=== PATIENT | male | born 1965 | race American Indian/Alaskan Native ===

== ENCOUNTER 2017-03-29 15:22 | Emergency (ER) | payer MEDICAID ==
[2017-03-29 15:39] VITALS: BP 109/71
== END 2017-03-29 16:35 | disposition left against medical advice (07) ==
LOC: ED 15:22
DX: R69 Illness, unspecified (principal); Z53.21 Procedure and treatment not carried out due to patient leaving prior to being seen by health care provider

== ENCOUNTER 2017-03-30 16:35 | Emergency (ER) | payer MEDICAID ==
[2017-03-30 17:16] LABS: Mean Corpuscular HGB Conc 30 % (32-34); Mean Corpuscular Volume 74 fl (84-94); Platelet Count 273 K/mm3 (140-440); Red Blood Count 4.74 M/mm3 (3.65-5.03); White Blood Count 3.6 K/mm3 (4.5-11.0)
[2017-03-30 17:18] LABS: Hematocrit 34.9 % (35.5-45.6); Hemoglobin 10.6 gm/dl (11.8-15.2)
[2017-03-30 17:19] LABS: Mean Corpuscular Hemoglobin 22 pg (28-32)
--- NOTE | 2017-03-30 17:21 | XRay Report ---
FINAL REPORT EXAM: XR CHEST ROUTINE 2V HISTORY: Shortness of breath TECHNIQUE: Two view chest PA and lateral PRIORS: None. FINDINGS: Cardiac and mediastinal contours are unremarkable. No focal pulmonary infiltrate is identified. No pleural fluid collection seen. Pulmonary vasculature is unremarkable. IMPRESSION: Negative two-view chest
[2017-03-30 17:35] LABS: Anion Gap 20 mmol/L; BUN/Creatinine Ratio 11; Blood Urea Nitrogen 12 mg/dL (9-20); Calcium 8.3 mg/dL (8.4-10.2); Carbon Dioxide 24 mmol/L (22-30); Chloride 110.3 mmol/L (98-107); Glucose 98 mg/dL (75-100); Potassium 4.4 mmol/L (3.6-5.0); Sodium 150 mmol/L (137-145)
[2017-03-30 17:59] LABS: Anisocytosis 1+; Blastocytes % (Manual) 0 %; Eosinophils % (Manual) 0 % (0.0-4.3); Large Platelets 1+
[2017-03-30 18:00] LABS: Hypochromasia 1+; Ovalocytes 1+; Target Cells 1+; Tear Drop Cells Few
[2017-03-30 18:01] LABS: Diff Status Complete; Platelet Estimate Consistent w Auto
--- NOTE | 2017-03-31 00:02 | Emergency Department Report ---
ED Shortness of Breath HPI - General Chief Complaint: Dyspnea/Respdistress Stated Complaint: SORE THROAT/SOB Time Seen by Provider: 03/30/17 23:49 Source: patient Mode of arrival: Ambulatory Limitations: No Limitations - History of Present Illness Initial Comments: Patient is 51 years old male with history of high blood pressure presented to the ER with a main complaint of shortness of breath and cough, productive with greenish sputum. Patient stated that he had chills but no fever of days Ago but no fever. Patient denied any chest pain nausea or vomiting. MD Complaint: shortness of breath, cough -: days(s) Context: recent URI Associated Symptoms: cough, sputum production - Related Data Allergies Allergy/AdvReac Type Severity Reaction Status Date / Time No Known Allergies Allergy Verified 03/30/17 16:47 ED Review of Systems ROS: Stated complaint: SORE THROAT/SOB Other details as noted in HPI Comment: All other systems reviewed and negative Constitutional: denies: chills, fever Respiratory: cough, shortness of breath. denies: orthopnea, SOB with exertion, SOB at rest, stridor Cardiovascular: denies: chest pain, palpitations, dyspnea on exertion, orthopnea , edema Gastrointestinal: denies: abdominal pain, nausea, vomiting, diarrhea Genitourinary: denies: urgency Neurological: denies: headache, weakness, numbness, paresthesias ED Past Medical Hx - Past Medical History Hx Hypertension: Yes - Surgical History Additional Surgical History: Hx of hip and knee surgery - Social History Smoking Status: Current Every Day Smoker Substance Use Type: Alcohol ED Physical Exam - General Limitations: No Limitations General appearance: alert, in no apparent distress - Head Head exam: Present: atraumatic, normocephalic, normal inspection - Eye Eye exam: Present: normal appearance, PERRL, EOMI Pupils: Present: normal accommodation - ENT ENT exam: Present: normal exam, normal orophraynx, mucous membranes moist - Neck Neck exam: Present: normal inspection, full ROM. Absent: tenderness, meningismus, lymphadenopathy, thyromegaly - Respiratory Respiratory exam: Present: normal lung sounds bilaterally. Absent: respiratory distress, wheezes, rales, rhonchi, stridor, chest wall tenderness, accessory muscle use, decreased breath sounds, prolonged expiratory - Cardiovascular Cardiovascular Exam: Present: regular rate, normal rhythm, normal heart sounds - GI/Abdominal GI/Abdominal exam: Present: soft, normal bowel sounds. Absent: distended, tenderness, guarding, rebound, rigid, organomegaly, mass, bruit, pulsatile mass , hernia - Extremities Exam Extremities exam: Present: normal inspection, full ROM, normal capillary refill. Absent: pedal edema - Back Exam Back exam: Present: normal inspection. Absent: tenderness, CVA tenderness (R), CVA tenderness (L) - Neurological Exam Neurological exam: Present: alert, oriented X3, CN II-XII intact, normal gait - Skin Skin exam: Present: warm, intact, normal color ED Course Vital Signs 03/30/17 03/30/17 03/31/17 16:47 19:38 00:43 Temperature 98.1 F 98.2 F Pulse Rate 85 109 H Respiratory 16 18 20 Rate Blood Pressure 111/65 124/75 O2 Sat by Pulse 95 100 Oximetry - Reevaluation(s) Reevaluation #1: 03/31/17 01:25 Patient stated that he is feeling much better. He denied any chest pain. 2 sets of troponins negative. His chest x-ray unremarkable ED Medical Decision Making - Lab Data Result diagrams: 03/30/17 16:56 03/30/17 16:56 - EKG Data -: EKG Interpreted by Md EKG shows normal: sinus rhythm Rate: normal - EKG Data Interpretation: no acute changes - Radiology Data Radiology results: report reviewed Referring Physician: CLYDE ROTH Patient Name: NICK SUAZO Date of : 1965 Sex: Male Report Date: 2017-03-30 Report Status: Finalized Findings [address] [address] XRay Report Signed Patient: NICK SUAZO MR#: [id number] : 1965 Acct:[id number] Age/Sex: 51 / M ADM Date: 03/30/17 Loc: ED Attending Dr: Ordering Physician: CLYDE ROTH MD Date of Service: 03/30/17 Procedure(s): XR chest routine 2V Accession Number(s): [id number] cc: CLYDE ROTH MD Fluoro Time In Minutes: FINAL REPORT EXAM: XR CHEST ROUTINE 2V HISTORY: Shortness of breath TECHNIQUE: Two view chest PA and lateral PRIORS: None. FINDINGS: Cardiac and mediastinal contours are unremarkable. No focal pulmonary infiltrate is identified. No pleural fluid collection seen. Pulmonary vasculature is unremarkable. IMPRESSION: Negative two-view chest Transcribed By: LANE Dictated By: DIRK BOLDEN MD Electronically Authenticated By: DIRK BOLDEN MD Signed Date/Time: 03/30/171316 DD/ 16 TD/TT: 03/30/171316 Critical care attestation.: If time is entered above; I have spent that time in minutes in the direct care of this critically ill patient, excluding procedure time. ED Disposition Clinical Impression: Shortness of breath, Acute bronchitis Disposition: DC-01 TO HOME OR SELFCARE Is pt being admited?: No Condition: Stable Instructions: Acute Bronchitis (ED) Referrals: PRIMARY CAREMD [Primary Care Provider] - 3-5 Days
[2017-03-31 04:00] VITALS: BP 140/88
== END 2017-03-31 04:03 | disposition home or self-care (01) ==
LOC: ED 16:35
DX: J20.9 Acute bronchitis, unspecified (principal); R06.02 Shortness of breath; I10 Essential (primary) hypertension; F17.200 Nicotine dependence, unspecified, uncomplicated
CPT/HCPCS: 36415; 71020; 80048; 83880; 84484; 85007; 85025; 93005; 93010; 99284; G0480; 80320

== ENCOUNTER 2017-08-14 22:11 | Emergency (ER) | payer MEDICAID ==
[2017-08-14 22:31] VITALS: BP 131/92
--- NOTE | 2017-08-14 23:08 | XRay Report ---
FINAL REPORT PROCEDURE: XR HAND 2V LT TECHNIQUE: LEFT hand radiographs, AP and lateral views. CPT 06808-ZG HISTORY: left hand pain and swelling COMPARISON: No prior studies are available for comparison. FINDINGS: Bony alignment is within normal limits. There is evidence of periarticular erosions involving the 3rd and 5th metacarpophalangeal joints. Joint space narrowing is noted involving radiocarpal joint. Mild degree osteophyte formation is noted involving interphalangeal joints. An acute fracture is not identified. Soft tissues are normal. No radiopaque foreign bodies. IMPRESSION: Findings are suspicious for a combination of osteoarthritis and gout. Clinical correlation is recommended..
--- NOTE | 2017-08-15 02:50 | Emergency Department Report ---
ED Extremity Problem HPI - General Chief complaint: Extremity Injury, Lower Stated complaint: LT HAND PAIN Time Seen by Provider: 08/15/17 02:44 Source: patient Mode of arrival: Ambulatory Limitations: No Limitations - History of Present Illness Initial comments: 51-year-old -[place] male comes to the emergency room and pain of left hand pain. Patient reports that he broke his arm 3 weeks ago and took off his cast by himself. Patient reports that he made a quick move yesterday and feels that he may have reinjured his left hand. Patient has a past medical history of chronic pain and patient is taking Percocet 10 mg last prescription was given on 08/08/2017. Patient has a past medical history of hypertension. No known drug allergies. MD Complaint: extremity pain -: days(s) (1) Location: left History of Same: Yes -: Yes arthralgia Radiation: none Severity scale (0 -10): 8 Quality: burning Consistency: constant Improves with: nothing Worsens with: weight bearing - Related Data Previous Rx's Medication Instructions Recorded Last Taken Type Amoxicillin [Amoxicillin TAB] 875 mg PO BID #14 tablet 03/31/17 Unknown Rx guaiFENesin [Robitussin] 5 ml PO TID PRN #100 ml 03/31/17 Unknown Rx Ibuprofen [Motrin 800 MG tab] 800 mg PO Q8HR PRN #30 tablet 08/15/17 Unknown Rx Allergies Allergy/AdvReac Type Severity Reaction Status Date / Time No Known Allergies Allergy Verified 03/30/17 16:47 ED Review of Systems ROS: Stated complaint: LT HAND PAIN Other details as noted in HPI Constitutional: denies: chills, fever Eyes: denies: eye pain, eye discharge, vision change ENT: denies: ear pain, throat pain Respiratory: denies: cough, shortness of breath, wheezing Cardiovascular: denies: chest pain, palpitations Endocrine: no symptoms reported Gastrointestinal: denies: abdominal pain, nausea, diarrhea Genitourinary: denies: urgency, dysuria Musculoskeletal: arthralgia. denies: back pain, joint swelling Skin: denies: rash, lesions Neurological: denies: headache, weakness, paresthesias Psychiatric: denies: anxiety, depression Hematological/Lymphatic: denies: easy bleeding, easy bruising ED Past Medical Hx - Past Medical History Previous Medical History?: Yes Hx Hypertension: Yes - Surgical History Past Surgical History?: Yes Additional Surgical History: Hx of hip and knee surgery - Social History Smoking Status: Current Every Day Smoker Substance Use Type: Alcohol - Medications Home Medications: Home Medications Medication Instructions Recorded Confirmed Last Taken Type Amoxicillin [Amoxicillin TAB] 875 mg PO BID #14 tablet 03/31/17 Unknown Rx guaiFENesin [Robitussin] 5 ml PO TID PRN #100 ml 03/31/17 Unknown Rx Ibuprofen [Motrin 800 MG tab] 800 mg PO Q8HR PRN #30 tablet 08/15/17 Unknown Rx ED Physical Exam - General Limitations: No Limitations General appearance: alert, in no apparent distress - Head Head exam: Present: atraumatic, normocephalic - Eye Eye exam: Present: normal appearance - ENT ENT exam: Present: mucous membranes moist - Neck Neck exam: Present: normal inspection - Expanded Upper Extremity Exam Left General: Present: normal inspection Shoulder Exam: Present: normal inspection, full ROM. Absent: tenderness Upper Arm exam: Present: normal inspection, full ROM. Absent: tenderness Elbow exam: Present: normal inspection, full ROM. Absent: tenderness Forearm Wrist exam: Present: normal inspection, full ROM. Absent: tenderness Hand Wrist exam: Present: normal inspection, full ROM, tenderness, deformity ( swan neck phalanges). Absent: swelling Vascular: Present: normal capillary refill. Absent: vascular compromise ED Course Vital Signs 08/14/17 22:26 Temperature 98.6 F Pulse Rate 85 Respiratory 20 Rate Blood Pressure 131/92 O2 Sat by Pulse 99 Oximetry ED Medical Decision Making - Radiology Data Radiology results: report reviewed, image reviewed FINDINGS: Bony alignment is within normal limits. There is evidence of periarticular erosions involving the 3rd and 5th metacarpophalangeal joints. Joint space narrowing is noted involving radiocarpal joint. Mild degree osteophyte formation is noted involving interphalangeal joints. An acute fracture is not identified. Soft tissues are normal. No radiopaque foreign bodies. IMPRESSION: Findings are suspicious for a combination of osteoarthritis and gout. Clinical correlation is recommended.. Transcribed By: [facility] Dictated By: MICHAEL PETTY Electronically Authenticated By: MICHAEL PETTY Signed Date/Time: 08/14/172302 DD/ 02 TD/TT: 04/25/18 2303 - Medical Decision Making Patient's been evaluated by this provider fast track. X-ray of hand shows no acute fractures. Shows some chronic arthritis versus gout. Patient recently received a prescription and filled it on for 08/08/2017 for Percocet 10 mg. Will give patient a prescription for ibuprofen. Patient should follow-up with his primary care provider. Critical care attestation.: If time is entered above; I have spent that time in minutes in the direct care of this critically ill patient, excluding procedure time. ED Disposition Clinical Impression: Left hand pain Disposition: DC-01 TO HOME OR SELFCARE Is pt being admited?: No Does the pt Need Aspirin: No Condition: Stable Instructions: Arthralgia (ED) Additional Instructions: Please continue with her chronic pain medicine. He can try taking ibuprofen to see if it helps. Follow up with her primary care provider if symptoms persist or gets worse. Prescriptions: Ibuprofen [Motrin 800 MG tab] 800 mg PO Q8HR PRN #30 tablet PRN Reason: Pain Referrals: PRIMARY CARE, [Primary Care Provider] - 3-5 Days
== END 2017-08-15 02:55 | disposition home or self-care (01) ==
LOC: ED 22:11
DX: M79.642 Pain in left hand (principal); I10 Essential (primary) hypertension; F17.200 Nicotine dependence, unspecified, uncomplicated
CPT/HCPCS: 99283

== ENCOUNTER 2017-09-22 16:02 | Emergency (ER) | payer MEDICAID ==
[2017-09-22 16:12] VITALS: BP 83/44
== END 2017-09-22 16:37 | disposition left against medical advice (07) ==
LOC: ED 16:02
DX: R53.1 Weakness (principal); Z53.21 Procedure and treatment not carried out due to patient leaving prior to being seen by health care provider
CPT/HCPCS: 93005; 93010

== ENCOUNTER 2017-10-21 21:32 | Emergency (ER) | payer MEDICAID ==
[2017-10-21 21:55] VITALS: BP 109/69
== END 2017-10-21 23:10 | disposition left against medical advice (07) ==
LOC: ED 21:32
DX: M25.512 Pain in left shoulder (principal); Z53.21 Procedure and treatment not carried out due to patient leaving prior to being seen by health care provider

== ENCOUNTER 2018-11-13 20:04 | Emergency (ER) | payer MEDICAID ==
[2018-11-13 20:13] VITALS: BP 135/93
--- NOTE | 2018-11-13 20:18 | Emergency Department Report ---
- General Chief complaint: Skin/Abscess/Foreign Body Stated complaint: BIT ON BACK Source: patient Mode of arrival: Ambulatory Limitations: No Limitations - History of Present Illness Initial comments: 52 y/o male comes in for a bite on his upper back. He sustain this yesterday. Complains of mild pain no discharge does not itch. UTD on vaccine. complaint: insect bite/sting Onset/Timin -: days(s) Tetanus Up to Date: yes Location: back ( upper) Severity: mild Quality: burning Consistency: intermittent Context: other (possible insect bite. ) Associated symptoms: denies other symptoms Treatments Prior to Arrival: none - Related Data Previous Rx's Medication Instructions Recorded Last Taken Type Amoxicillin [Amoxicillin TAB] 875 mg PO BID #14 tablet 03/31/17 Unknown Rx guaiFENesin [Robitussin] 5 ml PO TID PRN #100 ml 03/31/17 Unknown Rx Ibuprofen [Motrin 800 MG tab] 800 mg PO Q8HR PRN #30 tablet 08/15/17 Unknown Rx Hydrocortisone/Aloe/Vit.e/A/D 28 gm TP TID #28 cream..g. 11/13/18 Unknown Rx [Anti-Itch Creme 1% Cream] Allergies Allergy/AdvReac Type Severity Reaction Status Date / Time No Known Allergies Allergy Verified 10/21/17 21:52 Abscess Boil HPI - HPI Chief Complaint: Skin/Abscess/Foreign Body Stated Complaint: BIT ON BACK Home Medications: Previous Rx's Medication Instructions Recorded Last Taken Type Amoxicillin [Amoxicillin TAB] 875 mg PO BID #14 tablet 03/31/17 Unknown Rx guaiFENesin [Robitussin] 5 ml PO TID PRN #100 ml 03/31/17 Unknown Rx Ibuprofen [Motrin 800 MG tab] 800 mg PO Q8HR PRN #30 tablet 08/15/17 Unknown Rx Hydrocortisone/Aloe/Vit.e/A/D 28 gm TP TID #28 cream..g. 11/13/18 Unknown Rx [Anti-Itch Creme 1% Cream] Allergies/Adverse Reactions: Allergies Allergy/AdvReac Type Severity Reaction Status Date / Time No Known Allergies Allergy Verified 10/21/17 21:52 ED Review of Systems ROS: Stated complaint: BIT ON BACK Other details as noted in HPI Comment: All other systems reviewed and negative ED Past Medical Hx - Past Medical History Hx Hypertension: Yes - Surgical History Additional Surgical History: Hx of hip and knee surgery - Social History Smoking Status: Current Every Day Smoker Substance Use Type: Alcohol - Medications Home Medications: Home Medications Medication Instructions Recorded Confirmed Last Taken Type Amoxicillin [Amoxicillin TAB] 875 mg PO BID #14 tablet 03/31/17 Unknown Rx guaiFENesin [Robitussin] 5 ml PO TID PRN #100 ml 03/31/17 Unknown Rx Ibuprofen [Motrin 800 MG tab] 800 mg PO Q8HR PRN #30 tablet 08/15/17 Unknown Rx Hydrocortisone/Aloe/Vit.e/A/D 28 gm TP TID #28 cream..g. 11/13/18 Unknown Rx [Anti-Itch Creme 1% Cream] ED Physical Exam - General Limitations: No Limitations General appearance: alert, in no apparent distress - Head Head exam: Present: atraumatic, normocephalic - Eye Eye exam: Present: normal appearance - ENT ENT exam: Present: mucous membranes moist - Neurological Exam Neurological exam: Present: alert, oriented X3, normal gait - Psychiatric Psychiatric exam: Present: normal affect, normal mood - Expanded Skin Exam Expanded Type of lesion: Present: bite/sting Distribution of rash: back (upper) Description of rash: Present: erythematous, swelling ED Medical Decision Making - Medical Decision Making 52 y/o male comes in for what appears to be an insect bite. Patient will be discharge with instruction to keep clean and can you over the counter after bite. Critical care attestation.: If time is entered above; I have spent that time in minutes in the direct care of this critically ill patient, excluding procedure time. ED Disposition Clinical Impression: Insect bite Qualifiers: Encounter type: initial encounter Site of insect bite: unspecified part of neck Qualified Code(s): S10.96XA - Insect bite of unspecified part of neck, initial encounter; W57.XXXA - Bitten or stung by nonvenomous insect and other nonvenomous arthropods, initial encounter Disposition: - TO HOME OR SELFCARE Is pt being admited?: No Does the pt Need Aspirin: No Condition: Stable Instructions: Insect Bite or Sting (ED) Additional Instructions: Follow up with you primary care provider. Prescriptions: Hydrocortisone/Aloe/Vit.e/A/D [Anti-Itch Creme 1% Cream] 28 gm TP TID #28 cream..g.
== END 2018-11-13 20:50 | disposition home or self-care (01) ==
LOC: ED 20:04
DX: S10.96XA Insect bite of unspecified part of neck, initial encounter (principal); I10 Essential (primary) hypertension; F17.200 Nicotine dependence, unspecified, uncomplicated; W57.XXXA Bitten or stung by nonvenomous insect and other nonvenomous arthropods, initial encounter; Y93.89 Activity, other specified; Y92.89 Other specified places as the place of occurrence of the external cause; Y99.8 Other external cause status
CPT/HCPCS: 99282

== ENCOUNTER 2018-12-16 01:25 | Emergency (ER) | payer MEDICAID ==
--- NOTE | 2018-12-16 02:38 | XRay Report ---
LEFT WRIST 4 VIEWS. INDICATION / CLINICAL INFORMATION: swelling and pain COMPARISON: None available. FINDINGS: BONES / JOINT(S): No acute fracture or subluxation. Well-corticated bony fragment seen adjacent to th e ulnar styloid process. Mild DJD at the radiocarpal joint. SOFT TISSUES: No significant abnormality. ADDITIONAL FINDINGS: None. Signer Name: Nghia Grissom MD Signed: 12/16/2018 2:34 AM Workstation Name: [id number]
[2018-12-16] MEDS ORDERED: DELTASONE PO ONE (04:45)
[2018-12-16] MEDS ORDERED: ULTRAM PO ONE (04:45)
--- NOTE | 2018-12-16 04:51 | Emergency Department Report ---
ED Upper Extremity Inj HPI - General Chief Complaint: Extremity Injury, Upper Stated Complaint: LT WRIST AND ARM PAIN W/SWELLING Source: patient Mode of arrival: Ambulatory Limitations: No Limitations - History of Present Illness Initial Comments: Physical examination -[place] male who presents with left wrist pain 2 days states over 10 pain swelling denies history of arthritis or gout there is minimal pharyngeal trauma there is no numbness or tingling no deformity there is mild swelling no bleeding or abrasion or laceration there is no numbness or tingling bands and understanding MD Complaint: Injury to:: left Onset/Timin -: days(s) Other Extremity Injury: Hand: Left, Wrist: Left Other Injuries: none Handedness: right Place: home Severity scale (0 -10): 5 Improves With: none, movement Worsens With: none Associated Symptoms: denies other symptoms - Related Data Previous Rx's Medication Instructions Recorded Last Taken Type Amoxicillin [Amoxicillin TAB] 875 mg PO BID #14 tablet 03/31/17 Unknown Rx guaiFENesin [Robitussin] 5 ml PO TID PRN #100 ml 03/31/17 Unknown Rx Ibuprofen [Motrin 800 MG tab] 800 mg PO Q8HR PRN #30 tablet 08/15/17 Unknown Rx Hydrocortisone/Aloe/Vit.e/A/D 28 gm TP TID #28 cream..g. 11/13/18 Unknown Rx [Anti-Itch Creme 1% Cream] Indomethacin 50 mg PO Q8H PRN #30 capsule 12/16/18 Unknown Rx predniSONE [Deltasone] 40 mg PO QDAY 5 Days #10 tab 12/16/18 Unknown Rx Allergies Allergy/AdvReac Type Severity Reaction Status Date / Time No Known Allergies Allergy Verified 10/21/17 21:52 ED Review of Systems ROS: Stated complaint: LT WRIST AND ARM PAIN W/SWELLING Other details as noted in HPI Constitutional: denies: chills, fever Eyes: denies: eye pain, eye discharge, vision change ENT: denies: ear pain, throat pain Respiratory: denies: cough, shortness of breath, wheezing Cardiovascular: denies: chest pain, palpitations Endocrine: no symptoms reported Gastrointestinal: denies: abdominal pain, nausea, vomiting, diarrhea Genitourinary: denies: urgency, dysuria Musculoskeletal: joint swelling, arthralgia, myalgia. denies: back pain Skin: denies: rash, lesions Neurological: denies: headache, weakness, paresthesias Psychiatric: denies: anxiety, depression Hematological/Lymphatic: denies: easy bleeding, easy bruising ED Past Medical Hx - Past Medical History Previous Medical History?: Yes Hx Hypertension: Yes - Surgical History Past Surgical History?: Yes Additional Surgical History: Hx of hip and knee surgery. stomach - Social History Smoking Status: Current Every Day Smoker Substance Use Type: None - Medications Home Medications: Home Medications Medication Instructions Recorded Confirmed Last Taken Type Amoxicillin [Amoxicillin TAB] 875 mg PO BID #14 tablet 03/31/17 Unknown Rx guaiFENesin [Robitussin] 5 ml PO TID PRN #100 ml 03/31/17 Unknown Rx Ibuprofen [Motrin 800 MG tab] 800 mg PO Q8HR PRN #30 tablet 08/15/17 Unknown Rx Hydrocortisone/Aloe/Vit.e/A/D 28 gm TP TID #28 cream..g. 11/13/18 Unknown Rx [Anti-Itch Creme 1% Cream] Indomethacin 50 mg PO Q8H PRN #30 capsule 12/16/18 Unknown Rx predniSONE [Deltasone] 40 mg PO QDAY 5 Days #10 tab 12/16/18 Unknown Rx ED Physical Exam - General Limitations: No Limitations General appearance: alert, in no apparent distress - Head Head exam: Present: atraumatic, normocephalic - Eye Eye exam: Present: normal appearance, EOMI Pupils: Present: normal accommodation - ENT ENT exam: Present: normal orophraynx, mucous membranes moist - Neck Neck exam: Present: normal inspection, full ROM, lymphadenopathy. Absent: tenderness - Respiratory Respiratory exam: Present: normal lung sounds bilaterally. Absent: respiratory distress, wheezes, stridor, chest wall tenderness - Cardiovascular Cardiovascular Exam: Present: regular rate, normal rhythm, normal heart sounds. Absent: systolic murmur, diastolic murmur, rubs, gallop - GI/Abdominal GI/Abdominal exam: Present: soft, normal bowel sounds. Absent: distended, tenderness, bruit, hernia - Rectal Rectal exam: Present: deferred - Extremities Exam Extremities exam: Present: normal inspection, full ROM, tenderness, normal capillary refill, joint swelling. Absent: pedal edema, calf tenderness - Expanded Upper Extremity Exam Left Hand Wrist exam: Present: normal inspection, tenderness, swelling. Absent: full ROM, abrasion, laceration, ecchymosis, deformity, crepidus, dislocation, erythema, amputation, nail avulsion, subungual hematoma Neuro motor exam: Present: wrist extension intact, thumb opposition intact, thumb IP flexion intact, thumb adduction intact, fingers 2-5 abduction intact Neurosensory exam: Present: 2-point discrimination, radial nerve intact, ulnar nerve intact, median nerve intact Vascular: Present: normal capillary refill, radial pulse, brachial pulse, ulnar pulse. Absent: vascular compromise, pulse deficit radial art, pulse deficit ulnar art, pulse deficit brachial art - Back Exam Back exam: Present: normal inspection, full ROM, tenderness, CVA tenderness (R), CVA tenderness (L), muscle spasm. Absent: paraspinal tenderness, vertebral tenderness, rash noted - Neurological Exam Neurological exam: Present: alert, oriented X3, CN II-XII intact, normal gait, reflexes normal. Absent: motor sensory deficit - Psychiatric Psychiatric exam: Present: normal affect, normal mood - Skin Skin exam: Present: warm, dry, intact, normal color. Absent: rash ED Medical Decision Making - Radiology Data Radiology results: report reviewed, image reviewed Findings [facility] [address] [place] [address] XRay Report Signed Patient: NICK SUAZO MR#: [id number] : 1965 Acct:[id number] Age/Sex: 53 / M ADM Date: 12/16/18 Loc: ED Attending Dr: Ordering Physician: PAULINA URIOSTEGUI Date of Service: 12/16/18 Procedure(s): XR wrist 3+V LT Accession Number(s): [id number] cc: PAULINA URIOSTEGUI Fluoro Time In Minutes: LEFT WRIST 4 VIEWS. INDICATION / CLINICAL INFORMATION: swelling and pain COMPARISON: None available. FINDINGS: BONES / JOINT(S): No acute fracture or subluxation. Well-corticated bony fragment seen adjacent to the ulnar styloid process. Mild DJD at the radiocarpal joint. SOFT TISSUES: No significant abnormality. ADDITIONAL FINDINGS: None. Signer Name: Nghia Grissom MD Signed: 12/16/2018 2:34 AM Workstation Name: [id number] Transcribed By: CANDI Dictated By: Nghia Grissom MD Electronically Authenticated By: Nghia Grissom MD Signed Date/Time: 12/16/18233 DD/ 1 TD/TT: - Medical Decision Making this is likely Gout exacerbation, arthralgia , xray neg for fracture mild soft tissue swelling, plan, splint, prednisone, indomethacin, follow up with pcp in 2-3 days. pt verbalized agreement and understanding of discharge plan. Critical care attestation.: If time is entered above; I have spent that time in minutes in the direct care of this critically ill patient, excluding procedure time. ED Disposition Clinical Impression: Wrist pain, left Arthralgia Qualifiers: Joint pain location: wrist Laterality: left Qualified Code(s): M25.532 - Pain in left wrist Disposition: TO HOME OR SELFCARE Is pt being admited?: No Does the pt Need Aspirin: No Condition: Stable Instructions: Acute Gouty Arthritis (ED), Low Purine Diet (ED) Prescriptions: predniSONE [Deltasone] 40 mg PO QDAY 5 Days #10 tab Indomethacin 50 mg PO Q8H PRN #30 capsule PRN Reason: pain Referrals: [facility] [Provider Group] - 3-5 Days CHANDRAKANT VASQUEZ MD [Staff Physician] - 3-5 Days Forms: Work/School Release Form(ED) Time of Disposition: 05:09
== END 2018-12-16 06:01 | disposition home or self-care (01) ==
LOC: ED 01:25
DX: M25.532 Pain in left wrist (principal); I10 Essential (primary) hypertension; F17.200 Nicotine dependence, unspecified, uncomplicated; Z79.1 Long term (current) use of non-steroidal anti-inflammatories (NSAID); Z79.899 Other long term (current) drug therapy; Z98.890 Other specified postprocedural states
CPT/HCPCS: 29125; 73110; 99284; J7512

== ENCOUNTER 2019-12-04 23:12 | Emergency (ER) | payer MEDICAID ==
--- NOTE | 2019-12-05 00:02 | XRay Report ---
RIGHT HIP, 3 VIEWS INDICATION / CLINICAL INFORMATION: right hip pain S/P fall. COMPARISON: None available. FINDINGS: Bilateral hip arthroplasties are present. Visualized hardware is intact. The most distal portion of t he right femoral component is not included on the radiograph. No acute fracture or dislocation of the hip or pelvis. Impression: No visible fracture or dislocation.. Signer Name: Arianna Jean-Baptiste MD Signed: 12/04/2019 11:58 PM Workstation Name: [id number]
[2019-12-05 01:57] VITALS: BP 134/84
--- NOTE | 2019-12-05 02:32 | Emergency Department Report ---
ED Fall HPI - General Chief Complaint: Fall Stated Complaint: RIGHT HIP PAIN Time Seen by Provider: 12/05/19 02:28 Source: patient Mode of arrival: Ambulatory - History of Present Illness Initial Comments: Patient is a 54-year-old male that presents emergency room with complaints of right hip pain. Patient states he fell last night and he is having right hip pain. Patient states he slipped on water and fell directly onto his right hip. Patient states she had bilateral hip placement. Patient states the pain is a 10 out of 10. Patient states the pain is worse with walking, movement, palpation. Patient states the pain is better with remaining still at rest. Patient states he is still able to walk but it is difficult. Patient denies recent travel. Patient denies recent international travel. Patient denies exposure to the novel coronavirus. Patient denies sick contacts. Patient denies fever and chills. Patient denies cough. Patient denies diarrhea. Patient denies coming in contact with anybody with symptoms of the novel coronavirus. MD Complaint: fall -: Sudden Fall From: standing Fall Witnessed: no Place Fall Occurred: home Loss of Consciousness: none Prolonged Down Time?: no Symptoms Prior to Fall: none Severity: severe Severity scale (0 -10): 10 Quality: sharp, stabbing Context: tripped/slipped Associated Symptoms: denies. denies: headache, neck pain, numbness, weakness, chest paint, shortness of breath, abdominal pain, hematuria, unable to walk, lightheaded, vertigo, confusion - Related Data Previous Rx's Medication Instructions Recorded Last Taken Type Amoxicillin [Amoxicillin TAB] 875 mg PO BID #14 tablet 03/31/17 Unknown Rx guaiFENesin [Robitussin] 5 ml PO TID PRN #100 ml 03/31/17 Unknown Rx Ibuprofen [Motrin 800 MG tab] 800 mg PO Q8HR PRN #30 tablet 08/15/17 Unknown Rx Hydrocortisone/Aloe/Vit.e/A/D 28 gm TP TID #28 cream..g. 11/13/18 Unknown Rx [Anti-Itch Creme 1% Cream] Indomethacin 50 mg PO Q8H PRN #30 capsule 12/16/18 Unknown Rx predniSONE [Deltasone] 40 mg PO QDAY 5 Days #10 tab 12/16/18 Unknown Rx HYDROcodone/APAP 7.5-325 [[place] 1 each PO Q6HR PRN #10 tablet 12/05/19 Unknown Rx 7.5/325] Allergies Allergy/AdvReac Type Severity Reaction Status Date / Time No Known Allergies Allergy Verified 10/21/17 21:52 ED Review of Systems ROS: Stated complaint: RIGHT HIP PAIN Other details as noted in HPI Constitutional: denies: chills, fever Eyes: denies: eye pain, eye discharge, vision change ENT: denies: ear pain, throat pain Respiratory: denies: cough, shortness of breath, wheezing Cardiovascular: denies: chest pain, palpitations Endocrine: no symptoms reported Gastrointestinal: denies: abdominal pain, nausea, diarrhea Genitourinary: denies: urgency, dysuria Musculoskeletal: as per HPI. denies: back pain, joint swelling, arthralgia Skin: denies: rash, lesions Neurological: denies: headache, weakness, paresthesias Psychiatric: denies: anxiety, depression Hematological/Lymphatic: denies: easy bleeding, easy bruising ED Past Medical Hx - Past Medical History Previous Medical History?: Yes Hx Hypertension: Yes - Surgical History Past Surgical History?: Yes Additional Surgical History: Hx of hip and knee surgery. stomach - Family History Family history: no significant - Social History Smoking Status: Current Every Day Smoker Substance Use Type: None - Medications Home Medications: Home Medications Medication Instructions Recorded Confirmed Last Taken Type Amoxicillin [Amoxicillin TAB] 875 mg PO BID #14 tablet 03/31/17 Unknown Rx guaiFENesin [Robitussin] 5 ml PO TID PRN #100 ml 03/31/17 Unknown Rx Ibuprofen [Motrin 800 MG tab] 800 mg PO Q8HR PRN #30 tablet 08/15/17 Unknown Rx Hydrocortisone/Aloe/Vit.e/A/D 28 gm TP TID #28 cream..g. 11/13/18 Unknown Rx [Anti-Itch Creme 1% Cream] Indomethacin 50 mg PO Q8H PRN #30 capsule 12/16/18 Unknown Rx predniSONE [Deltasone] 40 mg PO QDAY 5 Days #10 tab 12/16/18 Unknown Rx HYDROcodone/APAP 7.5-325 [[place] 1 each PO Q6HR PRN #10 tablet 12/05/19 Unknown Rx 7.5/325] ED Physical Exam - General Limitations: No Limitations General appearance: alert, in no apparent distress - Head Head exam: Present: atraumatic, normocephalic - Eye Eye exam: Present: normal appearance - ENT ENT exam: Present: mucous membranes moist - Neck Neck exam: Present: normal inspection - Respiratory Respiratory exam: Present: normal lung sounds bilaterally. Absent: respiratory distress - Cardiovascular Cardiovascular Exam: Present: regular rate, normal rhythm. Absent: systolic murmur, diastolic murmur, rubs, gallop - GI/Abdominal GI/Abdominal exam: Present: soft, normal bowel sounds - Rectal Rectal exam: Present: deferred - Extremities Exam Extremities exam: Present: normal inspection, full ROM (Except with right hip), tenderness (Tenderness over right hip). Absent: calf tenderness - Back Exam Back exam: Present: normal inspection - Neurological Exam Neurological exam: Present: alert, oriented X3 - Psychiatric Psychiatric exam: Present: normal affect, normal mood - Skin Skin exam: Present: warm, dry, intact, normal color. Absent: rash ED Course Vital Signs 12/04/19 12/05/19 23:31 01:55 Temperature 98.9 F 98.8 F Pulse Rate 89 74 Respiratory 18 18 Rate Blood Pressure 115/75 Blood Pressure 134/84 [Right] O2 Sat by Pulse 98 100 Oximetry - Reevaluation(s) Reevaluation #1: I discussed all results and clinical findings with patient. I discussed plan of care with patient. Patient agrees with plan of care. Patient is stable for discharge. Patient will be discharged home. Patient given discharge instructions. Patient voiced understanding of discharge instructions. 12/05/19 03:56 ED Medical Decision Making - Radiology Data Radiology results: report reviewed CT pelvis wo con INDICATION / CLINICAL INFORMATION: hip pain. fall. TECHNIQUE: Axial CT imaging of pelvis was obtained without contrast. Coronal and sagittal reformatted imaging obtained and reviewed. All CT scans at this location are performed using CT dose reduction for A NICKI by means of automated exposure control. COMPARISON: Recent radiographs of the right hip FINDINGS: CT the pelvis without contrast does not reveal acute fracture of the pelvis or right hip. Bilateral hip arthroplasties are present. Hardware is grossly intact. 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 With respect to the right hip arthroplasty, there is a long femoral component, the tip of which is not included on this exam. Screw plate is present in the visualized portion of the right femur and is incompletely visualized. No obvious hardware abnormality noted, however. No soft tissue abnormality related to the pelvis. IMPRESSION: 1. No evidence for acute fracture or dislocation. 2. Bilateral hip arthroplasties are present. RIGHT HIP, 3 VIEWS INDICATION / CLINICAL INFORMATION: right hip pain S/P fall. COMPARISON: None available. FINDINGS: Bilateral hip arthroplasties are present. Visualized hardware is intact. The most distal portion of the right femoral component is not included on the radiograph. No acute fracture or dislocation of the hip or pelvis. Impression: No visible fracture or dislocation.. - Medical Decision Making Patient is a 54-year-old male that presents emergency room with complaints of fall and right hip pain. Patient had a plain film done and was negative for acute findings. But due to the amount of pain and the severity of pain and the fact the patient had bilateral hip replacements, a CT scan was done of the pelvis. CT scan of the pelvis was negative for acute findings. Patient requires are consistent with a fall, contusion and hip sprain. Patient stable for discharge. Patient was discharged home. - Differential Diagnosis Sprain, strain, fracture, contusion, hip pain, fall Critical care attestation.: If time is entered above; I have spent that time in minutes in the direct care of this critically ill patient, excluding procedure time. ED Disposition Clinical Impression: Hip pain, right, Pelvic pain, History of bilateral hip replacements Fall Qualifiers: Encounter type: initial encounter Qualified Code(s): W19.XXXA - Unspecified fall, initial encounter Contusion of hip, right Qualifiers: Encounter type: initial encounter Qualified Code(s): S70.01XA - Contusion of right hip, initial encounter Disposition: TO HOME OR SELFCARE Is pt being admited?: No Does the pt Need Aspirin: No Condition: Stable Instructions: Contusion in Adults (ED) Additional Instructions: Patient to follow-up with primary care in 2 to 3 days. Patient to follow-up with orthopedist in 2 to 3 days. Patient to rest. Patient to increase water. Patient to avoid strenuous exercise or heavy lifting until cleared by orthopedist. Patient to take Tylenol or ibuprofen as needed for pain. Patient to take meds as directed. Patient to return to the ER if condition worsens, changes or new symptoms arise. Prescriptions: HYDROcodone/APAP 7.5-325 [[place] 7.5/325] 1 each PO Q6HR PRN #10 tablet PRN Reason: Pain Referrals: CHAD DENNY MD [Primary Care Provider] - 2-3 Days DARNELL FOSS MD [Staff Physician] - 2-3 Days Time of Disposition: 04:00
--- NOTE | 2019-12-05 03:40 | Cat Scan Report ---
CT pelvis wo con INDICATION / CLINICAL INFORMATION: hip pain. fall. TECHNIQUE: Axial CT imaging of pelvis was obtained without contrast. Coronal and sagittal reformatted imaging ob tained and reviewed. All CT scans at this location are performed using CT dose reduction for ALARA b y means of automated exposure control. COMPARISON: Recent radiographs of the right hip FINDINGS: CT the pelvis without contrast does not reveal acute fracture of the pelvis or right hip. Bilateral h ip arthroplasties are present. Hardware is grossly intact. There is heterotopic ossification in the r egion of the right hip. With respect to the right hip arthroplasty, there is a long femoral component , the tip of which is not included on this exam. Screw plate is present in the visualized portion of the right femur and is incompletely visualized. No obvious hardware abnormality noted, however. No soft tissue abnormality related to the pelvis. IMPRESSION: 1. No evidence for acute fracture or dislocation. 2. Bilateral hip arthroplasties are present. Signer Name: Arianna Jean-Baptiste MD Signed: 12/05/2019 3:36 AM Workstation Name: [email or web address]
== END 2019-12-05 04:20 | disposition home or self-care (01) ==
LOC: ED 23:12
DX: S70.01XA Contusion of right hip, initial encounter (principal); R10.2 Pelvic and perineal pain; Z96.643 Presence of artificial hip joint, bilateral; I10 Essential (primary) hypertension; F17.200 Nicotine dependence, unspecified, uncomplicated; Z79.1 Long term (current) use of non-steroidal anti-inflammatories (NSAID); Z79.2 Long term (current) use of antibiotics; Z79.899 Other long term (current) drug therapy; W18.30XA Fall on same level, unspecified, initial encounter; Y93.89 Activity, other specified; Y92.89 Other specified places as the place of occurrence of the external cause; Y99.8 Other external cause status
CPT/HCPCS: 72192

== ENCOUNTER 2021-06-29 13:56 | Emergency (ER) | payer MEDICAID ==
[2021-06-29 14:19] VITALS: BP 144/90
--- NOTE | 2021-06-29 19:00 | Emergency Department Report ---
ED Back Pain/Injury HPI - General Chief Complaint: Animal Bite Stated Complaint: POSSIBLE SPIDER BITE Time Seen by Provider: 06/29/21 18:51 Source: patient Limitations: No Limitations - History of Present Illness Initial Comments: 55-year-old male presents to the ER today with complaints of left upper back pain and concerned that he may have been bitten by a spider. Patient states that he was bent over pulling a rug when he is felt a sudden burning pain to his left upper back. Patient assumed that it was from an insect or even a spider bite. Patient states that since the incident he has been having burning pain in his upper back which seems to be worse with movement of his back and his arm. He has not noticed any obvious swelling, bruising or redness. He denies any fever or chills. He reports no additional symptoms at this time. MD Complaint: back pain, other (CONCERN FOR SPIDER BITER) -: This morning - Related Data Previous Rx's Medication Instructions Recorded Last Taken Type Amoxicillin [Amoxicillin TAB] 875 mg PO BID #14 tablet 03/31/17 Unknown Rx guaiFENesin [Robitussin] 5 ml PO TID PRN #100 ml 03/31/17 Unknown Rx Ibuprofen [Motrin 800 MG tab] 800 mg PO Q8HR PRN #30 tablet 08/15/17 Unknown Rx Hydrocortisone/Aloe/Vit.e/A/D 28 gm TP TID #28 cream..g. 11/13/18 Unknown Rx [Anti-Itch Creme 1% Cream] Indomethacin 50 mg PO Q8H PRN #30 capsule 12/16/18 Unknown Rx predniSONE [Deltasone] 40 mg PO QDAY 5 Days #10 tab 12/16/18 Unknown Rx HYDROcodone/APAP 7.5-325 [[place] 1 each PO Q6HR PRN #10 tablet 12/05/19 Unknown Rx 7.5/325] Allergies Allergy/AdvReac Type Severity Reaction Status Date / Time No Known Allergies Allergy Verified 10/21/17 21:52 ED Review of Systems ROS: Stated complaint: POSSIBLE SPIDER BITE Other details as noted in HPI Comment: All other systems reviewed and negative Constitutional: denies: chills, fever Eyes: denies: eye pain, eye discharge, vision change ENT: denies: ear pain, throat pain Respiratory: denies: cough, shortness of breath, SOB with exertion, SOB at rest, wheezing Cardiovascular: denies: chest pain, palpitations, dyspnea on exertion, orthopnea, edema, syncope, paroxysmal nocturnal dyspnea Gastrointestinal: denies: abdominal pain, nausea, vomiting, diarrhea, constipation, hematemesis, hematochezia Genitourinary: denies: urgency, dysuria, frequency, hematuria, discharge, testicular pain, testicular mass Musculoskeletal: back pain, myalgia Skin: denies: rash, lesions, change in color, change in hair/nails, pruritus Neurological: denies: headache, weakness, numbness, paresthesias, confusion, abnormal gait, vertigo ED Past Medical Hx - Past Medical History Hx Hypertension: Yes - Surgical History Additional Surgical History: Hx of hip and knee surgery. stomach - Social History Smoking Status: Current Every Day Smoker Substance Use Type: None - Medications Home Medications: Home Medications Medication Instructions Recorded Confirmed Last Taken Type Amoxicillin [Amoxicillin TAB] 875 mg PO BID #14 tablet 03/31/17 Unknown Rx guaiFENesin [Robitussin] 5 ml PO TID PRN #100 ml 03/31/17 Unknown Rx Ibuprofen [Motrin 800 MG tab] 800 mg PO Q8HR PRN #30 tablet 08/15/17 Unknown Rx Hydrocortisone/Aloe/Vit.e/A/D 28 gm TP TID #28 cream..g. 11/13/18 Unknown Rx [Anti-Itch Creme 1% Cream] Indomethacin 50 mg PO Q8H PRN #30 capsule 12/16/18 Unknown Rx predniSONE [Deltasone] 40 mg PO QDAY 5 Days #10 tab 12/16/18 Unknown Rx HYDROcodone/APAP 7.5-325 [[place] 1 each PO Q6HR PRN #10 tablet 12/05/19 Unknown Rx 7.5/325] ED Physical Exam - General Limitations: No Limitations General appearance: alert, in no apparent distress, anxious - Head Head exam: Present: atraumatic, normocephalic, normal inspection - Eye Eye exam: Present: normal appearance, PERRL, EOMI Pupils: Present: normal accommodation - Neck Neck exam: Present: normal inspection, full ROM. Absent: meningismus - Respiratory Respiratory exam: Present: normal lung sounds bilaterally. Absent: respiratory distress, wheezes, rales, rhonchi - Cardiovascular Cardiovascular Exam: Present: regular rate, normal rhythm, normal heart sounds - Extremities Exam Extremities exam: Present: normal inspection, full ROM - Back Exam Back exam: Present: paraspinal tenderness (point ttp left paraspinal muscle left upper back. Pain is worse with movement of back and left shoulder ) - Neurological Exam Neurological exam: Present: alert, oriented X3, CN II-XII intact, normal gait - Psychiatric Psychiatric exam: Present: normal affect, normal mood - Skin Skin exam: Present: intact ED Course Vital Signs 06/29/21 14:15 Temperature 99 F Pulse Rate 73 Respiratory 16 Rate Blood Pressure 144/90 [Left] O2 Sat by Pulse 99 Oximetry ED Medical Decision Making - Medical Decision Making 55-year-old male presents to the ER today with complaints of left upper back pain and concerned that he may have been bitten by a spider. Patient states that he was bent over pulling a rug when he is felt a sudden burning pain to his left upper back. Patient assumed that it was from an insect or even a spider bite. Patient states that since the incident he has been having burning pain in his upper back which seems to be worse with movement of his back and his arm. He has not noticed any obvious swelling, bruising or redness. He denies any fever or chills. He reports no additional symptoms at this time. 1911: Physical exam shows that patient has point tenderness to the left paraspinal muscle in the interscapular area. Given his history I suspect patient may have pulled a muscle. There is no signs of any bite wounds, or any signs of infection. No mass. He has no vertebral point tenderness. Patient is neurologically intact he has a normal gait. Is not toxic or ill-appearing. Reassured patient that his symptoms were not likely related to a bite and more so related to probably a muscle strain. Offered patient medication for pain but he refused. Informed him to follow-up with his primary care doctor. Patient expressed understanding agree with plan. Patient stable at time of discharge Critical care attestation.: If time is entered above; I have spent that time in minutes in the direct care of this critically ill patient, excluding procedure time. ED Disposition Clinical Impression: Upper back pain, Muscle strain Disposition: HOME / SELF CARE / HOMELESS Is pt being admited?: No Does the pt Need Aspirin: No Condition: Stable Instructions: Acute Back Pain, Adult, Muscle Strain Additional Instructions: You can take Tylenol and/or ibuprofen as needed to help with any pain. Follow- up with your primary care doctor if your symptoms continue. Recommend that you make an appointment for 1 week. Return to ER if your symptoms changes or worsens in any way Referrals: PRIMARY CARE, [Referring] - 3-5 Days Time of Disposition: 19:00
== END 2021-06-29 19:00 | disposition home or self-care (01) ==
LOC: ED 13:56
DX: M54.6 Pain in thoracic spine (principal); T14.8XXA Other injury of unspecified body region, initial encounter; X58.XXXA Exposure to other specified factors, initial encounter; Y93.89 Activity, other specified; Y92.89 Other specified places as the place of occurrence of the external cause; Y99.8 Other external cause status
CPT/HCPCS: 99282